=== PATIENT | female | born 1980 | race Asian ===

== ENCOUNTER 2023-05-07 06:58 | Emergency (ER) | payer OTHER ==
[~2023-05-07] VITALS: Ht 160 cm; Wt 48.1 kg
[2023-05-07 08:27] VITALS: BP 107/76; TEMP 98.6; O2SAT 100
== END 2023-05-07 08:28 | disposition home or self-care (01) ==
LOC: ER 07:06
DX: R07.89 Other chest pain (principal); F41.9 Anxiety disorder, unspecified; Z98.890 Other specified postprocedural states; Z91.040 Latex allergy status; Z91.013 Allergy to seafood; Z88.1 Allergy status to other antibiotic agents